=== PATIENT | male | born 1995 | race Two or more races ===

== ENCOUNTER 2017-02-17 09:22 | Emergency (ER) | payer OTHER ==
[~2017-02-17] VITALS: Ht 182.9 cm; Wt 99.8 kg
[2017-02-17 10:23] VITALS: BP 134/86
== END 2017-02-17 10:58 | disposition home or self-care (01) ==
LOC: ER 09:22
DX: S39.012A Strain of muscle, fascia and tendon of lower back, initial encounter (principal); V43.52XA Car driver injured in collision with other type car in traffic accident, initial encounter; Y93.89 Activity, other specified; Y99.8 Other external cause status; Y92.89 Other specified places as the place of occurrence of the external cause
CPT/HCPCS: 72100

== ENCOUNTER 2017-02-22 17:41 | Emergency (ER) | payer OTHER ==
[~2017-02-22] VITALS: Ht 182.9 cm; Wt 99.8 kg
[2017-02-22 22:37] VITALS: BP 147/83
[2017-02-22] MEDS ORDERED: KETOROLAC TROMETH 60MG/2ML VIAL IM ONE (22:45)
== END 2017-02-22 23:08 | disposition home or self-care (01) ==
LOC: ER 18:12
DX: S33.5XXA Sprain of ligaments of lumbar spine, initial encounter (principal); X58.XXXA Exposure to other specified factors, initial encounter; Y93.89 Activity, other specified; Y99.8 Other external cause status; Y92.89 Other specified places as the place of occurrence of the external cause
CPT/HCPCS: 96372; 99283; J1885

== ENCOUNTER 2017-03-01 09:06 | Emergency (ER) | payer SELFPAY ==
[~2017-03-01] VITALS: Ht 182.9 cm; Wt 99.8 kg
[2017-03-01 09:21] VITALS: BP 146/78
== END 2017-03-01 10:35 | disposition home or self-care (01) ==
LOC: ER 09:06
DX: J11.1 Influenza due to unidentified influenza virus with other respiratory manifestations (principal)
CPT/HCPCS: 71046; 87400